=== PATIENT | female | born 1965 ===

== ENCOUNTER 2016-10-04 07:08 | Day surgery (SDC) | payer OTHER ==
[2016-10-04 07:45] VITALS: BMI 30.4
[2016-10-04 08:13] VITALS: O2SAT 100
[2016-10-04 11:02] VITALS: TEMP 97.4
[2016-10-04 11:15] VITALS: BP 124/60; PULSE 62; RESP 18
== END 2016-10-04 10:55 | disposition home or self-care (01) ==
LOC: C.ENDO 07:08
PROVIDERS: ATTEND Specialist
DX: K52.9 Noninfective gastroenteritis and colitis, unspecified (principal); K64.8 Other hemorrhoids; I10 Essential (primary) hypertension; K58.9 Irritable bowel syndrome, unspecified
CPT/HCPCS: 45380; 82948; 88305; 88313; 88342; J2704; J7120